=== PATIENT | male | born 1990 | race Hispanic/Latino ===

== ENCOUNTER 2018-01-23 19:45 | Emergency (ER) | payer OTHER ==
[2018-01-23] MEDS ORDERED: IBUPROFEN 400 MG TABLET ONE (20:37)
== END 2018-01-23 20:43 | disposition home or self-care (01) ==
LOC: EDH 19:45
DX: S13.8XXA Sprain of joints and ligaments of other parts of neck, initial encounter (principal); X58.XXXA Exposure to other specified factors, initial encounter; Y93.I9 Activity, other involving external motion; Y92.89 Other specified places as the place of occurrence of the external cause; Y99.8 Other external cause status

== ENCOUNTER 2018-02-25 02:03 | Emergency (ER) | payer SELFPAY ==
[2018-02-25] MEDS ORDERED: ASPIRIN 325 MG TABLET ONE (02:22)
[2018-02-25] MEDS ORDERED: ASPIRIN 81MG TAB.CHEW ONE (02:26)
[2018-02-25 02:41] LABS: BASOPHILS % (AUTO) 0.4 % (0.0-5.0); EOSINOPHILS % (AUTO) 0.5 % (0.0-8.0); HEMATOCRIT 39.7 % (42-54); LYMPHOCYTES % (AUTO) 18.3 % (21.0-51.0); MEAN CORPUSCULAR HEMOGLOBIN 29.7 pg (27.0-33.0); MEAN CORPUSCULAR HGB CONC 33.2 g/dL (32.0-36.0); MEAN CORPUSCULAR VOLUME 89.5 fL (79-99); NEUTROPHILS % (AUTO) 71.8 % (40.0-77.0); PLATELET COUNT (AUTO) 241 K/uL (130-400); RED BLOOD CELL COUNT(AUTO) 4.43 MIL/uL (4.50-6.20); WHITE BLOOD COUNT (AUTO) 9.4 K/uL (4.8-10.8)
[2018-02-25 02:54] LABS: CREATININE 0.8 mg/dL (0.5-1.5); POTASSIUM 3.6 mmol/L (3.5-5.1)
[2018-02-25 02:57] LABS: INR 0.97 (0.85-1.15); PROTHROMBIN TIME 10.2 SEC (9.6-11.6)
[2018-02-25 02:59] LABS: ALBUMIN 3.5 g/dL (3.5-5.0); BILIRUBIN,TOTAL 0.6 mg/dL (0.2-1.0)
== END 2018-02-25 03:25 | disposition home or self-care (01) ==
LOC: EDH 02:03
DX: R07.1 Chest pain on breathing (principal); F12.10 Cannabis abuse, uncomplicated; F14.10 Cocaine abuse, uncomplicated; Z72.0 Tobacco use
CPT/HCPCS: 36415; 71045; 80053; 82550; 84484; 85025; 85610; 85730; 93005

== ENCOUNTER 2018-02-27 13:58 | Emergency (ER) | payer OTHER | END 2018-02-27 14:24 | disposition home or self-care (01) | LOC: EDH 13:58 | DX: R07.89 Other chest pain (principal) ==

== ENCOUNTER 2022-06-24 06:16 | Emergency (ER) | payer OTHER ==
[~2022-06-24] VITALS: Ht 167.6 cm; Wt 63.5 kg
[2022-06-24] MEDS ORDERED: ACETAMINOPHEN 500 MG TABLET PO ONE (08:00)
[2022-06-24] MEDS ORDERED: IBUPROFEN 400 MG TABLET PO ONE (08:00)
[2022-06-24] MEDS ORDERED: IBUP-2070 PO (08:31)
[2022-06-24 08:44] VITALS: BP 128/73
== END 2022-06-24 08:45 | disposition home or self-care (01) ==
LOC: EDH 06:16
DX: S00.01XA Abrasion of scalp, initial encounter (principal); S10.81XA Abrasion of other specified part of neck, initial encounter; Y08.89XA Assault by other specified means, initial encounter; Y93.89 Activity, other specified; Y92.89 Other specified places as the place of occurrence of the external cause; Y99.8 Other external cause status
CPT/HCPCS: 70450; 72125